=== PATIENT | female | born 1985 | race Hispanic/Latino ===

== ENCOUNTER → 2017-11-09 | Outpatient (CLI) | payer MEDICAID ==
[~2017-11-09] MED LIST: ACET-2247 PO; PROPOFOL 10 MG/ML 20ML VIAL IV ONE
== END | disposition home or self-care (01) ==
LOC: RAH 09:54
PROVIDERS: ATTEND Internal Medicine
DX: R13.10 Dysphagia, unspecified (principal); R63.4 Abnormal weight loss
CPT/HCPCS: G8996; G8997; G8998; 74230; 92611; J2704

== ENCOUNTER 2018-01-17 22:48 | Emergency (ER) | payer MEDICAID, OTHER ==
[~2018-01-17 22:48] MED LIST changes: -PROPOFOL 10 MG/ML 20ML VIAL IV ONE
[2018-01-18] MEDS ORDERED: ACETAMINOPHEN EXTRA STRENGTH 500 MG TABLET ONE (00:21)
[2018-01-18] MEDS ORDERED: DEXAMETHASONE SOD PHOSPHATE 10MG/ML 1ML VIAL ONE (00:52)
[2018-01-18] MEDS ORDERED: CEFTRIAXONE SODIUM 1 GM ONE (00:52)
[2018-01-18] MEDS ORDERED: LIDOCAINE HCL-MPF 1% 2ML VIAL ONE (00:52)
== END 2018-01-18 01:31 | disposition home or self-care (01) ==
LOC: EDH 22:48
DX: J02.9 Acute pharyngitis, unspecified (principal); Z88.6 Allergy status to analgesic agent
CPT/HCPCS: 87804 ×2; 96372 ×2; 99284; J0696; J1100; J3490

== ENCOUNTER 2019-10-12 07:49 | Day surgery (SDC) | payer MEDICAID ==
[~2019-10-12] VITALS: Ht 149.9 cm; Wt 41.7 kg
[~2019-10-12 07:49] MED LIST changes: +SODIUM CHLORIDE 0.9% 1000ML 1,000 ML IV ONE
[2019-10-12 08:59] VITALS: BP 115/75
[2019-10-12] MEDS ORDERED: PROPOFOL 10 MG/ML 20ML VIAL IV ONE ×2 (10:02→10:17)
[2019-10-12 10:30] VITALS: BP 119/88
[2019-10-12 10:35] VITALS: BP 125/77
[2019-10-12] MEDS ORDERED: FENTANYL CITRATE PF 50 MCG/1 ML 2ML VIAL ONE (10:41)
[2019-10-12 11:06] VITALS: BP 126/78
== END 2019-10-12 11:20 | disposition home or self-care (01) ==
LOC: ENDO 07:49 → DAH 07:49 → ENDO 11:20
PROVIDERS: ATTEND Internal Medicine
DX: R13.10 Dysphagia, unspecified (principal); D50.9 Iron deficiency anemia, unspecified; K21.9 Gastro-esophageal reflux disease without esophagitis; K22.2 Esophageal obstruction; K31.89 Other diseases of stomach and duodenum; Z88.0 Allergy status to penicillin; Z88.5 Allergy status to narcotic agent; Z88.8 Allergy status to other drugs, medicaments and biological substances; Z72.89 Other problems related to lifestyle; Z79.899 Other long term (current) drug therapy; Z98.51 Tubal ligation status; Z98.890 Other specified postprocedural states; Z82.49 Family history of ischemic heart disease and other diseases of the circulatory system
CPT/HCPCS: 43239; 43249; A4215; A4221; A4222; A4223; A4606; A4620; A4663; J2704 ×2; J3010; J7030